=== PATIENT | female | born 1975 | race Caucasian/White ===

== ENCOUNTER → 2017-01-02 | Outpatient (CLI) | payer BC, OTHER ==
[~2017-01-02] MED LIST: CALCTAB5 PO; CYAN50TA2 PO; FLURBIPROFEN PO; GLUCTAB7 PO; PRAS1TAB PO; VITAMIN D3 PO
== END | disposition home or self-care (01) ==
LOC: C.RDSM 15:07
PROVIDERS: ATTEND Family Medicine
DX: M25.561 Pain in right knee (principal)